=== PATIENT | female | born 1935 | race Caucasian/White ===

== ENCOUNTER 2018-04-04 14:28 | Observation (INO) ==
[2018-04-04] MEDS ORDERED: 0.9 % Sodium Chloride 1,000 ML IVC ONE (14:49)
--- NOTE | 2018-04-04 14:49 | Emergency Department Note ---
Disposition Clinical Impression: KRYSTYNA (acute kidney injury), Hypoglycemia, Generalized weakness Anemia Qualifiers: Anemia type: unspecified type Qualified Code(s): D64.9 - Anemia, unspecified Disposition: Admitted As Inpatient Condition: Fair Referrals: Ayo Talavera DO [Primary Care Provider] - Forms: ED Satisfaction Letter Time of Disposition: 16:25 Weakness HPI - General Chief complaint: ED Weakness Stated complaint: Weakness Time Seen by Provider: 04/04/18 14:36 Source: patient, family Mode of arrival: ambulatory Limitations: no limitations Nursing Notes Reviewed: Yes Vital Signs Reviewed: Yes - History of Present Illness HPI Narrative: 83-year-old female history of hypertension, hyperlipidemia, non-insulin- dependent diabetes, presents ambulatory with complaint of nausea vomiting chest pain and weakness for the last month. Patient states that her nausea and vomiting worse today, she said gradual decline in function throat the day and she states that she has no focal deficits no weakness on one side of her body, no slurred speech or facial droop. But that she just feels more tired than normal. She said intermittent bouts of chest pain that lasts for several minutes and go away, she also has cramps in her right upper abdomen. Patient states that she is had a few episodes of emesis as well. She has not been evaluated by her physician in this time period, she is no history of CVA, no history of OK is a nonsmoker nondrinker and does not take any other medications. Pt Subjective Complaint: generalized weakness/fatigue Migration: none Pain Severity: none Pain Scale: 0 Improves with: none Worsens with: exertion Associated symptoms: Reports: chest pain, nausea/vomiting. Denies: confusion, dark stools - Related Data Home Medications Medication Instructions Recorded Confirmed Aspirin [Lo-Dose Aspirin EC] 81 mg PO DAILY 04/04/18 04/04/18 Furosemide [Lasix] 20 mg PO DAILY PRN 04/04/18 04/04/18 Ketorolac Tromethamine 1 drop OP BID 04/04/18 04/04/18 Moxifloxacin OPTH Drops [Vigamox] 1 drop RIGHT EYE BID 04/04/18 04/04/18 NIFEdipine [Nifedipine ER] 30 mg PO DAILY 04/04/18 04/04/18 Omeprazole [PriLOSEC] 40 mg PO DAILY 04/04/18 04/04/18 Ramipril [Altace] 5 mg PO DAILY 04/04/18 04/04/18 Simvastatin [Zocor] 40 mg PO HS 04/04/18 04/04/18 glipiZIDE [Glipizide] 10 mg PO DAILY 04/04/18 04/04/18 hydroCHLOROthiazide 25 mg PO DAILY 04/04/18 04/04/18 [Hydrochlorothiazide] metFORMIN [Glucophage] 500 mg PO BIDWM 04/04/18 04/04/18 prednisoLONE acetate [Prednisolone 1 drop RIGHT EYE BID 04/04/18 04/04/18 Acetate] Allergies Allergy/AdvReac Type Severity Reaction Status Date / Time Hydromorphone [From Dilaudid] AdvReac Hallucinati Verified 04/04/18 14:31 ng All systems ED: reviewed and negative except as stated. Review of Systems: As Per HPI Constitutional: Reports: as per HPI, weakness. Denies: fever, chills Eyes: Denies: eye pain ENT ED: Denies: ear pain, throat pain Cardiovascular: Reports: as per HPI, chest pain Respiratory: Denies: dyspnea, wheezes Gastrointestinal: Reports: nausea, vomiting Genitourinary: Denies: urgency Musculoskeletal: Denies: back pain Integumentary: Denies: rash Neurological: Denies: headache Psychiatric: Denies: anxiety Endocrine: Reports: as per HPI, fatigue Past Medical History - Past Medical History Attestation: Yes The following information was validated with the patient. Source: patient Medical history: Reports: diabetes, hyperlipidemia, hypertension Psychiatric history: Reports: no psych history - Social History Smoking Status: Never smoker Smokeless Tobacco Status: No Alcohol use: Reports: none Drug use: Reports: none Physical Exam Constitutional: Elderly female appears somewhat lethargic but otherwise no acute distress vital signs stable borderline tachycardia 95-105 heartbeat Eyes: PERRLA, sclera anicteric conjunctival pallor, right eye post cataract surgery ENT & Mouth: MMM Neck: normal inspection, neck is supple Resp: CTA bilaterally, no resp distress CV: Tachycardia, no m/g/r GI: normal inspection, soft, no guarding or rigidity Neuro: A&O3, CNII-XII grossly intact, JOSEPH 5 out of 5 upper and lower extremities strength, no sensory deficits bilaterally. Skin: on limited exam, skin intact with no rashes or lesions Course Course Narrative: 83-year-old female with multiple comorbidities presented with generalized weakness and increased exertional dyspnea as well as chest pain, in the setting concerns for possible OK versus CHF exacerbation, she is no evidence of volume overload, she does seem somewhat pale also favor differential of anemia, UTI, bacteremia, we will get that about workup including CBC BMP troponin EKG chest x -ray CT head he will liter fluid bolus, also checking urinalysis thyroid function and CPK. Favor admission for this elderly, comorbid female - Reevaluation(s) Reevaluation #1: Patient was hypoglycemic and given half an amp of D50, blood glucose responded 102, patient with a KI, hypoglycemia, anemia with no clear baseline but 9.5 without any evidence of hematochezia or melena. The patient will be admitted for further workup to hospitalist, accepting, patient hd stable at time of admission. Time: 16:24 Vital Signs Temperature 99.2 F 04/04/18 14:31 Pulse Rate 100 04/04/18 14:31 Respiratory Rate 16 04/04/18 14:31 Blood Pressure 133/71 04/04/18 14:31 O2 Sat by Pulse Oximetry 94 04/04/18 14:31 Temperature 99.2 F 04/04/18 14:40 Pulse Rate 86 04/04/18 15:52 Respiratory Rate 14 04/04/18 15:52 Blood Pressure 131/63 04/04/18 15:52 O2 Sat by Pulse Oximetry 97 04/04/18 15:52 Oxygen Delivery Oxygen Delivery Room Air Weakness - Differential Diagnosis Differential Diagnosis: Likely: anemia, hypoglycemia, sepsis/infection, dehydration, medication effect, metabolic - Medical Records Medical records reviewed: Yes I reviewed the patient's medical records. - Lab Data Lab results reviewed: Yes I reviewed the patient's lab results. Result diagrams: 04/04/18 15:17 04/04/18 15:17 Lab Results 04/04/18 04/04/18 04/04/18 Range/Units 15:00 15:17 15:17 WBC 12.0 H (4.3-11.1) K/mcL RBC 4.37 (3.82-4.97) M/mcL Hgb 9.5 L (11.5-15.4) g/dL Hct 31.6 L (35.3-44.9) % MCV 72.3 L (83.0-100.0) fL MCH 21.7 L (28.0-33.3) pg MCHC 30.1 L (31.6-35.5) g/dL RDW 19.1 H (11.5-14.5) % Plt Count 232 (140-400) K/mcL MPV 11.2 (9.4-12.4) fL Immature Gran % 0.3 (0-4) % Seg Neutrophils % 68.9 % Lymphocytes % 16.9 % Monocytes % 10.0 % Eosinophils % 3.6 % Basophils % 0.3 % Neutrophils # 8.2 (1.6-8.9) K/mcL Lymphocytes # 2.0 (0.6-4.6) K/mcL Monocytes # 1.2 (0.0-1.3) K/mcL Eosinophils # 0.4 (0.0-0.6) K/mcL Basophils # 0.0 (0.0-0.2) K/mcL D-Dimer 483 (0-500) ng/mLFEU Sodium (136-145) mEq/L Potassium (3.5-5.1) mEq/L Chloride (98-107) mEq/L Carbon Dioxide (23-29) mEq/L BUN (8-23) mg/dL Creatinine (0.60-1.20) mg/dL Est GFR ( Amer) (> 60) Est GFR (Non-Af Amer) (> 60) BUN/Creatinine Ratio (6-26) Glucose (70-105) mg/dL Calculated Osmolality (280-300) Lactic Acid (0.5-2.2) mmol/L Calcium (8.6-10.3) mg/dL Phosphorus (2.7-4.5) mg/dL Magnesium (1.6-2.6) mg/dL Total Bilirubin (0.3-1.0) mg/dL AST (13-39) Units/L ALT (7-52) Units/L Alkaline Phosphatase (34-104) Units/L Creatine Kinase (30-223) Units/L Troponin I (< 0.04) ng/mL Serum Total Protein (6.4-8.9) g/dL Albumin (3.5-5.7) g/dL Globulin (2.4-3.5) g/dL Albumin/Globulin Ratio (1.1-2.2) Urine Color Yellow (Yellow) Urine Clarity Clear (Clear) Urine pH 5.5 (5.0-8.0) pH Units Ur Specific [place] 1.026 H (1.010-1.025) Urine Protein Negative (Neg-Trace) mg/dL Urine Glucose (UA) Normal (Normal) mg/dL Urine Ketones Negative (Negative) mg/dL Urine Blood Negative (Negative) Urine Nitrite Negative (Negative) Urine Bilirubin Negative (Negative) Urine Urobilinogen Normal (Normal) mg/dL Ur Leukocyte Esterase Small H (Negative) Urine Microscopic RBC 0-3 (0-3) per hpf Urine Microscopic WBC 5-15 H (0-3) per hpf Ur Squamous Epith Cells Many H (None-Few) per lpf Urine Bacteria Few (None-Few) per hpf Hyaline Casts None Seen (None-Few) per lpf Ur Culture Indicated? NO. A (NO) 04/04/18 04/04/18 Range/Units 15:17 15:17 WBC (4.3-11.1) K/mcL RBC (3.82-4.97) M/mcL Hgb (11.5-15.4) g/dL Hct (35.3-44.9) % MCV (83.0-100.0) fL MCH (28.0-33.3) pg MCHC (31.6-35.5) g/dL RDW (11.5-14.5) % Plt Count (140-400) K/mcL MPV (9.4-12.4) fL Immature Gran % (0-4) % Seg Neutrophils % % Lymphocytes % % Monocytes % % Eosinophils % % Basophils % % Neutrophils # (1.6-8.9) K/mcL Lymphocytes # (0.6-4.6) K/mcL Monocytes # (0.0-1.3) K/mcL Eosinophils # (0.0-0.6) K/mcL Basophils # (0.0-0.2) K/mcL D-Dimer (0-500) ng/mLFEU Sodium 139 (136-145) mEq/L Potassium 3.8 (3.5-5.1) mEq/L Chloride 102 (98-107) mEq/L Carbon Dioxide 25 (23-29) mEq/L BUN 24 H (8-23) mg/dL Creatinine 1.24 H (0.60-1.20) mg/dL Est GFR ( Amer) 50 L (> 60) Est GFR (Non-Af Amer) 41 L (> 60) BUN/Creatinine Ratio 19 (6-26) Glucose 62 L (70-105) mg/dL Calculated Osmolality 290 (280-300) Lactic Acid 2.2 (0.5-2.2) mmol/L Calcium 10.5 H (8.6-10.3) mg/dL Phosphorus 2.7 (2.7-4.5) mg/dL Magnesium 1.7 (1.6-2.6) mg/dL Total Bilirubin 0.5 (0.3-1.0) mg/dL AST 31 (13-39) Units/L ALT 23 (7-52) Units/L Alkaline Phosphatase 63 (34-104) Units/L Creatine Kinase 118 (30-223) Units/L Troponin I < 0.03 (< 0.04) ng/mL Serum Total Protein 7.2 (6.4-8.9) g/dL Albumin 4.5 (3.5-5.7) g/dL Globulin 2.7 (2.4-3.5) g/dL Albumin/Globulin Ratio 1.7 (1.1-2.2) Urine Color (Yellow) Urine Clarity (Clear) Urine pH (5.0-8.0) pH Units Ur Specific [place] (1.010-1.025) Urine Protein (Neg-Trace) mg/dL Urine Glucose (UA) (Normal) mg/dL Urine Ketones (Negative) mg/dL Urine Blood (Negative) Urine Nitrite (Negative) Urine Bilirubin (Negative) Urine Urobilinogen (Normal) mg/dL Ur Leukocyte Esterase (Negative) Urine Microscopic RBC (0-3) per hpf Urine Microscopic WBC (0-3) per hpf Ur Squamous Epith Cells (None-Few) per lpf Urine Bacteria (None-Few) per hpf Hyaline Casts (None-Few) per lpf Ur Culture Indicated? (NO) - Radiology Data Radiology results reviewed: Yes I reviewed the patient's radiology results. Chest X-Ray 04/04/18 14:49 IMPRESSION: Negative portable study. D/ / Wilda Henderson Cha, MD / Wilda Henderson Cha, MD Interpreting Provider: Wilda Henderson Cha, MD Head CT 04/04/18 14:51 IMPRESSION: No acute intracranial abnormality. Left sphenoid sinusitis. D/ / Tomer Cline MD / Tomer Cline MD Interpreting Provider: Tomer Cline MD - EKG Data EKG attestation: Yes I reviewed and interpreted this EKG. EKG shows normal: sinus rhythm Rate: normal Rhythm: NSR (99 bpm NV 157 QRS [address] segment elevations or depressions.) Attestation Statement - Attestation Attestation: Patient was seen with resident physician. I reviewed the history, physical, assessment and plan, and agree with the findings. I also personally evaluated this patient and had [id number] time with this patient. 83-year-old female presents emergency Department with chief complaint of generalized weakness. Patient states that for the last month or so should be getting progressively weaker and noticed that for the last 24-48 hours it has gotten progressively worse which ultimately prompted her visit. She said she gets up and she has very little energy to do any of her activities. Some mild shortness of breath. Denied to me chest pain. She is also had nausea and vomiting in association with this. Patient is on oral hypoglycemics in her by mouth intake has been poor for the last couple of days. Review of systems as above remainder negative. Physical exam vital signs stable. ENT pale conjunctivae otherwise unremarkable. Heart regular rhythm and rate. Lungs clear. Abdomen soft obese nontender. Extremities unremarkable. Neurologically intact without focal deficits. Skin no rashes. Psych normal. ED course with the patient's complaint of weakness and its progressive worsening. We will get a CT scan of the head and look for other causes of weakness in the elderly. Once her workup is complete we have ruled out any conditions that would require transfer or surgical intervention, she will be admitted to the hospitalist service once we have a better sense of what might be causing her symptoms. Lab testing showed some mild hypoglycemia. Head CT chest x-ray were negative. The lip testing was largely unremarkable. She was treated with some D50 and other symptomatic therapies. Obviously with her having difficulty performing daily activities she will need to be admitted for further evaluation and treatment. We did contact the hospitalist agreed to accept the patient for admission. I agree with resident physician assessment and plan.
[2018-04-04] MEDS ORDERED: *HR* Dextrose 50 % in Water (Syg) 50 ML SYRINGE IVP ONE (15:04)
[2018-04-04 15:11] LABS: Bilirubin,Urine Negative (Negative); Blood,Urine Negative (Negative); Clarity,Urine Clear (Clear); Color,Urine Yellow (Yellow); Glucose,Urine (UA) Normal (Normal); Ketones,Urine Negative (Negative); Leukocyte Esterase,Urine Small (Negative); Nitrite,Urine Negative (Negative); PH,Urine 5.5 pH Units (5.0-8.0); Protein,Urine Negative (Neg-Trace); Specific Gravity,Urine 1.026 (1.010-1.025); Urobilinogen,Urine Normal (Normal)
[2018-04-04 15:14] LABS: Bacteria,Urine Few per hpf (None-Few); Hyaline Casts,Urine None Seen per lpf (None-Few); RBC,Urine 0-3 per hpf (0-3); Squamous Epithelial Cell,Urine Many per lpf (None-Few)
[2018-04-04 15:27] LABS: Basophils % 0.3 %; Eosinophils # 0.4 K/mcL (0.0-0.6); Eosinophils % 3.6 %; Hematocrit 31.6 % (35.3-44.9); Hemoglobin 9.5 g/dL (11.5-15.4); Immature Granulocytes % 0.3 % (0-4); Lymphocytes % 16.9 %; Mean Corpuscular HGB Conc 30.1 g/dL (31.6-35.5); Mean Corpuscular Hemoglobin 21.7 pg (28.0-33.3); Mean Corpuscular Volume 72.3 fL (83.0-100.0); Mean Platelet Volume 11.2 fL (9.4-12.4); Monocytes # 1.2 K/mcL (0.0-1.3); Neutrophils # 8.2 K/mcL (1.6-8.9); Platelet Count 232 K/mcL (140-400); Red Blood Count 4.37 M/mcL (3.82-4.97); Red Cell Distribution Width 19.1 % (11.5-14.5); Segmented Neutrophils % 68.9 %
[2018-04-04 15:53] LABS: Alanine Aminotransferase 23 Units/L (7-52); Albumin 4.5 g/dL (3.5-5.7); Albumin/Globulin Ratio 1.7 (1.1-2.2); Alkaline Phosphatase 63 Units/L (34-104); Aspartate Amino Transferase 31 Units/L (13-39); BUN/Creatinine Ratio 19 (6-26); Bilirubin,Total 0.5 mg/dL (0.3-1.0); Blood Urea Nitrogen 24 mg/dL (8-23); Calcium 10.5 mg/dL (8.6-10.3); Carbon Dioxide 25 mEq/L (23-29); Chloride 102 mEq/L (98-107); Creatine Kinase 118 Units/L (30-223); Globulin 2.7 g/dL (2.4-3.5); Glucose 62 mg/dL (70-105); Magnesium 1.7 mg/dL (1.6-2.6); Osmolality,Calculated 290 (280-300); Phosphorous 2.7 mg/dL (2.7-4.5); Potassium 3.8 mEq/L (3.5-5.1); Sodium 139 mEq/L (136-145); Total Protein 7.2 g/dL (6.4-8.9); eGFR For African Americans 50 (> 60); eGFR For Non-African Americans 41 (> 60)
[2018-04-04 15:54] LABS: Troponin I < 0.03 ng/mL (< 0.04)
[2018-04-04] MEDS ORDERED: Naloxone 0.4 MG/ML INJ IVP PRN (16:43)
[2018-04-04] MEDS ORDERED: Ondansetron 4 MG/2 ML VIAL IVP PRN (16:49)
[2018-04-04] MEDS ORDERED: Furosemide 20 MG TABLET PO PRN (16:51)
[2018-04-04] MEDS ORDERED: D5% in Water 1,000 ML IVC PRN (16:52)
[2018-04-04] MEDS ORDERED: *HR* Dextrose 50 % in Water (Syg) 50 ML SYRINGE IVP PRN (16:52)
[2018-04-04] MEDS ORDERED: Dextrose Gel 15 GM/37.5 ML TUBE PO PRN ×2 (16:52)
--- NOTE | 2018-04-04 17:04 | Internal Med History&Physical ---
Addendum entered and electronically signed by Kamila Oliva 04/04/18 18:20: TSH was elevated @ 63.580, will get serum T3 and t4. Addendum entered and electronically signed by Kamila Oliva 04/04/18 17:41: A/P Generalized weakness: Ct of head negative for acute abnormality. Original Note: <Kamila Oliva - Last Filed: 04/04/18 17:39> Date of Encounter: 04/04/18 Time of Encounter: 16:56 Internal Medicine - H&P: HPI Chief complaint: Chest discomfort, nausea and vomiting Admitted From: Home Plans for Post Hospital Care: Home History of present illness: Ms. Moran is a 83 year old female with history of HTN, HLD, and DM. The patient indicated that she was not having chest pain, but " chest discomfort". She stated that the symptoms started about 1 month ago and has been reoccurring and getting worse over the past 1-2 weeks. The patient reported that she has also been having alot of nausea with a decreased appetite, however she denies CP. She also reported recent diarrhea and WONG. Patient with 2 brothers and her mother with heart history and a sister with stents. She recently had right cataract surgery and is wearing black glasses. WBC is 12.0, hgb is 9.5, unsure of her baseline. Her Na is 139, , creat is 1.24. The patient dtr is in the room also giving information. The ED gave dextrose for a blood glucose of 62. The patient dtr indicated that the blood sugar would occasionally drop when she wasn't sick. Will get cardiac workup, and trend troponins. Today's trop was < 0.03. EKG SR with a pattern consistent with pulmonary disease and an old inf IA. Chest xray showed ? minimal linear atelectasis. Will start IS. Past Med Surg Social Fam HX - Past Medical History Medical history: diabetes, hyperlipidemia, hypertension Psychiatric history: no psych history - Social History Smoking Status: Never smoker Smokeless Tobacco Status: No Alcohol use: none Drug use: none Internal Medicine - H&P: Meds Aspirin [Lo-Dose Aspirin EC] 81 mg PO DAILY 04/04/18 [History] Furosemide [Lasix] 20 mg PO DAILY PRN 04/04/18 [History] Ketorolac Tromethamine 1 drop OP BID 04/04/18 [History] Moxifloxacin OPTH Drops [Vigamox] 1 drop RIGHT EYE BID 04/04/18 [History] NIFEdipine [Nifedipine ER] 30 mg PO DAILY 04/04/18 [History] Omeprazole [PriLOSEC] 40 mg PO DAILY 04/04/18 [History] Ramipril [Altace] 5 mg PO DAILY 04/04/18 [History] Simvastatin [Zocor] 40 mg PO HS 04/04/18 [History] glipiZIDE [Glipizide] 10 mg PO DAILY 04/04/18 [History] hydroCHLOROthiazide [Hydrochlorothiazide] 25 mg PO DAILY 04/04/18 [History] metFORMIN [Glucophage] 500 mg PO BIDWM 04/04/18 [History] prednisoLONE acetate [Prednisolone Acetate] 1 drop RIGHT EYE BID 04/04/18 [ History] 3 Allergy/AdvReac Type Severity Reaction Status Date / Time Hydromorphone [From Dilaudid] AdvReac Hallucinati Verified 04/04/18 14:31 ng All Systems PM: A 10-system review of systems was performed and is negative for pertinent findings except as documented above in the HPI. - Constitutional Constitutional: fatigue, weakness, no chills, no fever(s), no night sweats - EENT Eyes: other visual disturbances (Recent cataract surgery of right eye.), no change in vision, no discharge, no pain, no photophobia Ears: no ear discharge, no ear pain, no tinnitus Nose, mouth and throat: no dysphagia, no nasal discharge, no neck pain, no sore throat - Cardiovascular Cardiovascular ROS IM: chest pain (States "chest discomfort"), no diaphoresis, no dyspnea, no lightheadedness, no palpitations, no syncope - Respiratory Respiratory: no cough, no dyspnea, no wheezing, no excessive phlegm production - Gastrointestinal Gastrointestinal: diarrhea, nausea, no abdominal pain, no hematemesis, no hematochezia, no melena - Genitourinary Genitourinary: no change in urinary stream, no dysuria, no flank pain, no hematuria - Musculoskeletal Musculoskeletal ROS IM: no numbness, no tingling - Integumentary Integumentary IM: no rash, no unusual bruising - Neurological Neurological ROS: headache(s), no confusion, no convulsions, no focal weakness, no numbness, no tingling, no tremor(s) - Hematologic/Lymphatic Hematologic/Lymphatic: no easy bruising - Constitutional Vitals: Temp Pulse Resp BP Pulse Ox 99.2 F 86 11 115/66 97 04/04/18 14:40 04/04/18 15:52 04/04/18 16:51 04/04/18 16:51 04/04/18 15:52 General appearance: Present: A&O X 3 - Head Head exam: Present: atraumatic, normal inspection, normocephalic - Eye Eye exam: Present: PERRL, conjuntiva pink, sclera anicteric Pupils: Present: PERRL - Neck Neck exam general surgery: Present: supple, trachea midline. Absent: lymphadenopathy - Respiratory Respiratory exam: Present: CTAB. Absent: accessory muscle use, rales, rhonchi, wheezes - Cardiovascular Cardiovascular exam: Present: RRR, +S1, +S2. Absent: diastolic murmur, gallop, rubs, systolic murmur - GI/Abdominal GI/Abdominal exam: Present: normal bowel sounds, soft, no peritoneal signs. Absent: distended, tenderness - Extremities Exam Extremities exam: Present: warm, radial pulses palpable and symmetrical. Absent : calf tenderness, cyanotic, pedal edema - Neurological Exam Neurological exam: Present: CN II-XII intact, oriented X3, no focal deficits. Absent: pronater drift, facial droop, speech deficit - Skin Skin exam: Present: dry, intact Internal Med - H&P Results - Labs CBC & Chem 7: 04/04/18 15:17 04/04/18 15:17 - Assessment and plan (1) Chest discomfort Current Visit: Yes Status: Acute Assessment and plan: Patient indicated that she was having "chest discomfort" off and on for the past 1 month, unsure of etiology, with associated nausea. Cardiac monitoring Trend cardiac enzymes Oxygen prn Monitor daily labs (2) KRYSTYNA (acute kidney injury) Current Visit: Yes Status: Acute Assessment and plan: Likely related to dehydration, IV fluids Monitor daily labs-cbc and BMP (3) Anemia Current Visit: Yes Status: Acute Assessment and plan: Cause of anemia is unclear, could be related to kidney function Monitor cbc daily Cardiac monitoring Oxygen prn Qualifiers: Anemia type: unspecified type Qualified Code(s): D64.9 - Anemia, unspecified (4) Generalized weakness Current Visit: Yes Status: Acute Assessment and plan: Likely related to dehydration and anemia Monitor labs daily Up with assist only PT/OT consult (5) Hypoglycemia Current Visit: Yes Status: Acute Assessment and plan: Accu checks ac/hs with humalog low sliding scale Hold metformin and glipizide - Time Spent With Patient Total time spent is greater than 50% in coordination of care (as documented) at patient's floor/unit and/or counseling patient: less than 15 minutes <Renato Sheehan P - Last Filed: 04/04/18 19:03> Date of Encounter: 04/04/18 Internal Medicine - H&P: HPI History of present illness: Ms. Moran is a 83 year old female All Systems PM: A 10-system review of systems was performed and is negative for pertinent findings except as documented above in the HPI. - Constitutional Vitals: Temp Pulse Resp BP Pulse Ox 98.4 F 81 18 123/68 94 04/04/18 17:44 04/04/18 17:44 04/04/18 17:44 04/04/18 17:44 04/04/18 17:44 Internal Med - H&P Results - Labs CBC & Chem 7: 04/04/18 15:17 04/04/18 15:17 - Attending Attestation I have seen and evaluated patient. I have performed my own physical examination. I have discussed case with admitting RESEARCHER. I agree with RESEARCHER's assessment and plan as documented in her H&P. Briefly, patient admitted for 1- month history of intermittent chest pain, KRYSTYNA, anemia, nausea, and generalized weakness. We will do ACS rule out with telemetry, serial troponins, and ECHO. We will hydrate gently with IV NS at 75 ml/hr for KRYSTYNA. We will use zofran PRN for nausea. We will monitor serial CBC and check iron panel for anemia. We will consult PT/OT for weakness. She had borderline hypoglycemia in ED that improved with dextrose. We will hold home glipizide and start accuchecks and low dose SSI QID AC/HS. We will monitor closely in observation overnight. - Time Spent With Patient Total time spent is greater than 50% in coordination of care (as documented) at patient's floor/unit and/or counseling patient:
[2018-04-04 17:59] LABS: % Iron Saturation 3 % (15-50); Iron 16 mcg/dL (50-170); Transferrin 442 mg/dL (203-362)
[2018-04-04] MEDS: 0.9 % Sodium Chloride 1,000 ML IVC SCH (18:22)
[2018-04-04 19:02] LABS: Triiodothyronine (T3) Total 0.94 ng/mL (0.87-1.78)
[2018-04-04 19:47] LABS: Triiodothyronine (T3) Total 0.65 ng/mL (0.87-1.78)
[2018-04-04] MEDS: Ketorolac OPTH Soln 5 ML BOTTLE RIGHT EYE SCH (20:58)
[2018-04-04] MEDS: PrednisoLONE Acetate 1% Opth 5 ML BOTTLE RIGHT EYE SCH (20:58)
[2018-04-04] MEDS: Moxifloxacin OPTH Drops 3 ML BOTTLE RIGHT EYE SCH (20:58)
[2018-04-04] MEDS: Insulin LISPRO 300 UNITS/3 ML VIAL SQ SCH (20:59)
[2018-04-05 03:45] LABS: Basophils % 0.4 %; Eosinophils # 0.4 K/mcL (0.0-0.6); Eosinophils % 4.4 %; Hematocrit 28.9 % (35.3-44.9); Hemoglobin 8.5 g/dL (11.5-15.4); Immature Granulocytes % 0.2 % (0-4); Lymphocytes % 21.7 %; Mean Corpuscular HGB Conc 29.4 g/dL (31.6-35.5); Mean Corpuscular Hemoglobin 21.4 pg (28.0-33.3); Mean Corpuscular Volume 72.6 fL (83.0-100.0); Monocytes % 10.4 %; Neutrophils # 5.9 K/mcL (1.6-8.9); Platelet Count 200 K/mcL (140-400); Red Blood Count 3.98 M/mcL (3.82-4.97); Red Cell Distribution Width 19.2 % (11.5-14.5); Segmented Neutrophils % 62.9 %
[2018-04-05 04:07] LABS: Calcium 9.8 mg/dL (8.6-10.3); Chol/HDL Ratio 3.5 (0-4.9); Potassium 3.9 mEq/L (3.5-5.1)
[2018-04-05] MEDS: Insulin LISPRO 300 UNITS/3 ML VIAL SQ SCH ×4 (07:52→21:36)
[2018-04-05] MEDS ORDERED: *HR* GlipiZIDE 5 MG TABLET PO SCH (09:00)
--- NOTE | 2018-04-05 09:07 | Internal Med Progress Note ---
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 [facility] approximately one year ago She has received no treatment since those findings Reports with greater than one-month history of weakness, fatigue, chest discomfort, nausea TSH obtained with results of 63.580, 3 T4 2 0.80, total T3 0.65 Started patient on conservative Synthroid dosing, 125 mcg daily first dose today Obtain thyroid US Antimicrosomal antibody pending Remains hemodynamically stable A and O 3 and appropriate Qualifiers: Hypothyroidism type: unspecified Qualified Code(s): E03.9 - Hypothyroidism , unspecified (2) KRYSTYNA (acute kidney injury) Current Visit: Yes Status: Acute Assessment and plan: Acute kidney injury on admission. Renal function improving, serum creatinine 1.14, GFR 45, BUN 18 today 04/05/18 Avoid nephrotoxins Continue to monitor renal function Encourage oral fluid intake (3) Anemia Current Visit: Yes Status: Acute Assessment and plan: History of chronic anemia, appears to be EVELIO with iron of 16, transferrin 442 Presents with weakness, fatigue, and also has pallor on exam No obvious bleeding noted Denies any denies any hematuria, hematemesis, hematochezia, melena Replace oral iron now and then daily Recheck H&H this afternoon then labs daily Type and screen, continue to monitor transfuse if necessary Qualifiers: Anemia type: unspecified type Qualified Code(s): D64.9 - Anemia, unspecified (4) Chest discomfort Current Visit: Yes Status: Acute Assessment and plan: Resolved Continue desk monitor Cardiac enzymes negative 3 (5) Diabetes mellitus Current Visit: Yes Status: Acute Assessment and plan: History of DM Initially hypoglycemic on arrival Blood glucose has improved since admission, FSBG this afternoon 201 Low sliding scale insulin coverage Qualifiers: Qualified Code(s): E11.9 - Type 2 diabetes mellitus without complications (6) Generalized weakness Current Visit: Yes Status: Acute Assessment and plan: Secondary to anemia and hypothyroidism See above (7) Hypoglycemia Current Visit: Yes Status: Acute Assessment and plan: Resolved. - Time Spent With Patient Total time spent is greater than 50% in coordination of care (as documented) at patient's floor/unit and/or counseling patient: 25 - 35 minutes - Subjective Interval history: Patient seen and examined at bedside today. No acute changes overnight. Continued to report fatigue in BLE weakness - Constitutional Vitals: Temp Pulse Resp BP Pulse Ox 97.9 F 80 16 137/68 94 04/05/18 07:35 04/05/18 07:35 04/05/18 07:35 04/05/18 07:35 04/05/18 07:35 General appearance: Present: A&O X 3, no acute distress - Head Head exam: Present: atraumatic, normocephalic - Eye Eye exam: Present: PERRL, conjuntiva pink, sclera anicteric Pupils: Present: PERRL - Neck Neck exam general surgery: Present: normal inspection, supple, trachea midline. Absent: lymphadenopathy, tenderness, thyromegaly - Expanded Neck Exam Neck exam: Absent: thyroid mass - Respiratory Respiratory exam: Present: decreased breath sounds, CTAB. Absent: accessory muscle use, rales, rhonchi, wheezes - Cardiovascular Cardiovascular exam: Present: RRR, +S1, +S2. Absent: diastolic murmur, gallop, rubs, systolic murmur - GI/Abdominal GI/Abdominal exam: Present: normal bowel sounds, soft, no peritoneal signs. Absent: distended, tenderness - Extremities Exam Extremities exam: Present: normal capillary refill, normal inspection, warm, radial pulses palpable and symmetrical. Absent: calf tenderness, cyanotic, pedal edema - Neurological Exam Neurological exam: Present: alert, CN II-XII intact, normal gait, oriented X3, reflexes normal, no focal deficits, strengths equal and symetr throughout. Absent: pronater drift, facial droop, speech deficit - Skin Skin exam: Present: dry, intact Internal Medicine: Result - Labs CBC & Chem 7: 04/05/18 03:31 04/05/18 03:31 Labs: Short CBC 04/05/18 Range/Units 03:31 WBC 9.4 (4.3-11.1) K/mcL Hgb 8.5 L (11.5-15.4) g/dL Hct 28.9 L (35.3-44.9) % Plt Count 200 (140-400) K/mcL Neutrophils # 5.9 (1.6-8.9) K/mcL BMP 04/05/18 03:31 Sodium 141 Potassium 3.9 Chloride 107 Carbon Dioxide 27 BUN 18 Creatinine 1.14 Glucose 108 H Calcium 9.8 Cardiac Enzymes 04/04/18 04/05/18 Range/Units 21:29 03:31 Troponin I < 0.03 < 0.03 (< 0.04) ng/mL - ABG Interpretation ABG results: PT/INR, D-dimer D-Dimer 483 ng/mLFEU (0-500) 04/04/18 15:17 Consult Discharge Plan - Plan Referrals: Ayo Talavera DO [Primary Care Provider] -
[2018-04-05] MEDS: 0.9 % Sodium Chloride 1,000 ML IVC SCH (09:13)
[2018-04-05] MEDS: Lisinopril 20 MG TABLET PO SCH (09:13)
[2018-04-05] MEDS: hydroCHLOROthiazide 25 MG TABLET PO SCH (09:14)
[2018-04-05] MEDS: Aspirin Enteric Coated 81 MG Tablet PO SCH (09:14)
[2018-04-05] MEDS: NIFEdipine XL (24 HR) 30 MG TAB.ER.24 PO SCH (09:17)
[2018-04-05] MEDS: Moxifloxacin OPTH Drops 3 ML BOTTLE RIGHT EYE SCH ×2 (09:17→23:11)
[2018-04-05] MEDS: Ketorolac OPTH Soln 5 ML BOTTLE RIGHT EYE SCH ×2 (09:20→23:11)
[2018-04-05] MEDS: PrednisoLONE Acetate 1% Opth 5 ML BOTTLE RIGHT EYE SCH ×2 (09:22→23:11)
[2018-04-05 09:23] LABS: Estimated Average Glucose 169 mg/dl; Hemoglobin A1C 7.5 %
--- NOTE | 2018-04-05 10:13 | Electrocardiograph Report ---
[address] [place] [address] Test Date: 2018-04-04 Pat Name: Erendira Moran Department: 103 Room: 3B Gender: F [employer] Equipment Sales Engineer: SHILPA : 1935 Requested By: Angel Tao Order Number: [id number] Reading MD: Michael Gilbert Measurements Intervals [place] Rate: 99 P: 40 SC: 157 QRS: -52 QRSD: 86 T: 47 QT: 331 QTc: 388 Interpretive Statements SINUS RHYTHM Poor R wave progression INFERIOR MYOCARDIAL INFARCTION, PROBABLY OLD Electronically Signed On 04-05-2018 10:11:35 EDT by Michael Gilbert
[2018-04-05 16:58] LABS: Hematocrit 30.5 % (35.3-44.9); Hemoglobin 8.9 g/dL (11.5-15.4)
[2018-04-06 05:24] LABS: Basophils % 0.5 %; Eosinophils # 0.3 K/mcL (0.0-0.6); Eosinophils % 4.8 %; Hematocrit 26.4 % (35.3-44.9); Hemoglobin 7.7 g/dL (11.5-15.4); Immature Granulocytes % 0.6 % (0-4); Lymphocytes # 1.7 K/mcL (0.6-4.6); Lymphocytes % 25.4 %; Mean Corpuscular HGB Conc 29.2 g/dL (31.6-35.5); Mean Corpuscular Hemoglobin 21.4 pg (28.0-33.3); Mean Corpuscular Volume 73.5 fL (83.0-100.0); Mean Platelet Volume 11.1 fL (9.4-12.4); Monocytes # 0.8 K/mcL (0.0-1.3); Monocytes % 11.6 %; Neutrophils # 3.8 K/mcL (1.6-8.9); Platelet Count 168 K/mcL (140-400); Red Blood Count 3.59 M/mcL (3.82-4.97); Red Cell Distribution Width 19.1 % (11.5-14.5); Segmented Neutrophils % 57.1 %
[2018-04-06 05:42] LABS: BUN/Creatinine Ratio 15 (6-26); Blood Urea Nitrogen 15 mg/dL (8-23); Calcium 9.4 mg/dL (8.6-10.3); Carbon Dioxide 26 mEq/L (23-29); Chloride 109 mEq/L (98-107); Glucose 139 mg/dL (70-105); Osmolality,Calculated 293 (280-300); Potassium 3.8 mEq/L (3.5-5.1); Sodium 140 mEq/L (136-145); eGFR For African Americans > 60 (> 60); eGFR For Non-African Americans 51 (> 60)
[2018-04-06] MEDS: 0.9 % Sodium Chloride 1,000 ML IVC SCH (07:20)
[2018-04-06] MEDS: Insulin LISPRO 300 UNITS/3 ML VIAL SQ SCH ×4 (08:18→21:22)
[2018-04-06] MEDS: Lisinopril 20 MG TABLET PO SCH (08:18)
[2018-04-06] MEDS: NIFEdipine XL (24 HR) 30 MG TAB.ER.24 PO SCH (08:18)
[2018-04-06] MEDS: Aspirin Enteric Coated 81 MG Tablet PO SCH (08:18)
[2018-04-06] MEDS: Moxifloxacin OPTH Drops 3 ML BOTTLE RIGHT EYE SCH ×2 (08:19→21:19)
[2018-04-06] MEDS: hydroCHLOROthiazide 25 MG TABLET PO SCH (08:19)
[2018-04-06] MEDS: Ketorolac OPTH Soln 5 ML BOTTLE RIGHT EYE SCH ×2 (08:21→21:18)
[2018-04-06] MEDS: PrednisoLONE Acetate 1% Opth 5 ML BOTTLE RIGHT EYE SCH ×2 (08:23→21:19)
--- NOTE | 2018-04-06 11:11 | Internal Med Progress Note ---
Date of Encounter: 04/06/18 Time of Encounter: 11:11 - Assessment and plan (1) Anemia Current Visit: Yes Status: Acute Assessment and plan: Hemoglobin 7.7 this a.m. does not appear to be actively bleeding at this time does have history of chronic anemia appears to be EVELIO with iron of 16 transferrin 442 we will check a ferritin level as well as B12 and folate. Denies any hematuria hematemesis hematochezia melena Continue with oral iron We will recheck H&H this afternoon if less than 7 we will transfuse Qualifiers: Anemia type: unspecified type Qualified Code(s): D64.9 - Anemia, unspecified (2) KRYSTYNA (acute kidney injury) Current Visit: Yes Status: Acute Assessment and plan: Acute kidney injury on admission. Renal function improving, serum creatinine 1.03 04/06/2018 Avoid nephrotoxins Continue to monitor renal function Encourage oral fluid intake (3) Hypoglycemia Current Visit: Yes Status: Acute Assessment and plan: Resolved. (4) Generalized weakness Current Visit: Yes Status: Acute Assessment and plan: Secondary to anemia and hypothyroidism See above (5) Chest discomfort Current Visit: Yes Status: Acute Assessment and plan: Resolved Continue director non profit Cardiac enzymes negative 3 (6) Diabetes mellitus Current Visit: Yes Status: Acute Assessment and plan: Initially hypoglycemic on arrival Glucose has been stable continue with Accu-Cheks before meals at bedtime with fine scale insulin Qualifiers: Diabetes mellitus type: type 2 Diabetes mellitus custodial insulin use: without custodial use Diabetes mellitus complication status: without complication Qualified Code(s): E11.9 - Type 2 diabetes mellitus without complications (7) Hypothyroidism Current Visit: Yes Status: Acute Assessment and plan: Hypothyroidism-Patient 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 [facility] approximately one year ago She has received no treatment since those findings Recent and with greater than one-month history of weakness, fatigue, chest discomfort, nausea TSH obtained with results of 63.580, 3 T4 2 0.80, total T3 0.65 Started patient on conservative Synthroid dosing, 125 mcg daily first dose today Obtain thyroid US-pending results Antimicrosomal antibody pending Remains hemodynamically stable We will recheck TSH Qualifiers: Hypothyroidism type: unspecified Qualified Code(s): E03.9 - Hypothyroidism , unspecified (8) DVT prophylaxis Current Visit: Yes Status: Acute Assessment and plan: SCDs due to anemia - Time Spent With Patient Total time spent is greater than 50% in coordination of care (as documented) at patient's floor/unit and/or counseling patient: - Subjective Interval history: Patient was seen and examined at the bedside. Patient denies any chest pain or shortness of breath at this time. Hemoglobin was low this a.m. we will recheck this afternoon and transfuse as needed. We will obtain stool for occult. I did discuss treatment plan with the patient who verbalized understanding. - Constitutional Vitals: Temp Pulse Resp BP Pulse Ox 97.8 F 68 16 113/65 95 04/06/18 07:48 04/06/18 07:48 04/06/18 07:48 04/06/18 07:48 04/06/18 08:20 General appearance: Present: A&O X 3, no acute distress - Head Head exam: Present: atraumatic, normocephalic - Eye Eye exam: Present: PERRL, conjuntiva pink, sclera anicteric Pupils: Present: PERRL - Neck Neck exam general surgery: Present: supple, trachea midline. Absent: lymphadenopathy - Respiratory Respiratory exam: Present: CTAB. Absent: accessory muscle use, rales, rhonchi, wheezes - Cardiovascular Cardiovascular exam: Present: RRR, +S1, +S2. Absent: diastolic murmur, gallop, rubs, systolic murmur - GI/Abdominal GI/Abdominal exam: Present: normal bowel sounds, soft, no peritoneal signs. Absent: distended, tenderness - Extremities Exam Extremities exam: Present: warm, radial pulses palpable and symmetrical. Absent : calf tenderness, cyanotic, pedal edema - Neurological Exam Neurological exam: Present: CN II-XII intact, oriented X3, no focal deficits. Absent: pronater drift, facial droop, speech deficit - Skin Skin exam: Present: dry, intact Internal Medicine: Result - Labs CBC & Chem 7: 04/06/18 13:58 04/06/18 05:00 Labs: Short CBC 04/05/18 04/06/18 Range/Units 14:13 05:00 WBC 6.7 (4.3-11.1) K/mcL Hgb 8.9 L 7.7 L (11.5-15.4) g/dL Hct 30.5 L 26.4 L (35.3-44.9) % Plt Count 168 (140-400) K/mcL Neutrophils # 3.8 (1.6-8.9) K/mcL BMP 04/06/18 05:00 Sodium 140 Potassium 3.8 Chloride 109 H Carbon Dioxide 26 BUN 15 Creatinine 1.03 Glucose 139 H Calcium 9.4 - ABG Interpretation ABG results: PT/INR, D-dimer D-Dimer 483 ng/mLFEU (0-500) 04/04/18 15:17 - Impressions Impressions Echocardiogram 04/05/18 08:00 Impressions: LVEF 60-65%. Normal LV chamber size and function. Mild concentric left ventricular hypertrophy. Mild left ventricular diastolic dysfunction. Normal right ventricular structure and function. No evidence of pulmonary hypertension. No significant valvular dysfunction. Left Ventricular Wall Motion: Rest Echo Findings All wall segments showed normal motion. Findings: Study Quality * Technically adequate exam. ECG Findings * Sinus rhythm with BBB. Left Ventricle * LVEF 60-65%. * Normal LV chamber size and function. * Mild concentric left ventricular hypertrophy. * Mild left ventricular diastolic dysfunction. * Atypical septal motion consistent with bundle branch block. Right Ventricle * Normal right ventricular structure and function. Left Atrium * Mildly dilated left atrium. Right Atrium * Normal right atrial size. Aortic Valve * Trileaflet aortic valve. * Mildly sclerotic aortic valve leaflets. * Trace aortic regurgitation. * No aortic stenosis. Mitral Valve * Normal mitral valve structure and function. * No mitral regurgitation. * No mitral stenosis. Tricuspid Valve * Normal tricuspid valve structure and function. * Trace tricuspid regurgitation. * No evidence of pulmonary hypertension. Pulmonic Valve * Normal pulmonic valve structure and function. * No pulmonic regurgitation. Aorta * Normally sized aortic root. Pericardium * The pericardium appears normal. IVC * Normal IVC dimensions and inspiratory collapse. Pulmonary Artery * Normal visualized portions of the main pulmonary artery. Thyroid Ultrasound 04/05/18 15:29 IMPRESSION: Enlarged multinodular goiter with a dominant nodule noted on the right. Correlation with nuclear medicine may be helpful. D/ / Dionicio Bennett MD / Dionicio Bennett MD Interpreting Provider: Dionicio Bennett MD - VTE Documentation of Mechanical Device: Venous foot pump, device Consult Discharge Plan - Plan Referrals: Ayo Talavera DO [Primary Care Provider] - 04/14/18 11:15 am
[2018-04-06 12:21] LABS: Folate 19.7 ng/mL (3.0-16.0)
[2018-04-06 14:23] LABS: Hemoglobin 8.2 g/dL (11.5-15.4)
[2018-04-07 05:04] LABS: Basophils % 0.4 %; Eosinophils # 0.5 K/mcL (0.0-0.6); Hematocrit 27.9 % (35.3-44.9); Hemoglobin 8.2 g/dL (11.5-15.4); Immature Granulocytes % 0.4 % (0-4); Immature Platelets 6.7 % (1.1-6.1); Lymphocytes % 28.9 %; Mean Corpuscular HGB Conc 29.4 g/dL (31.6-35.5); Mean Corpuscular Hemoglobin 21.8 pg (28.0-33.3); Mean Corpuscular Volume 74.2 fL (83.0-100.0); Mean Platelet Volume 11.3 fL (9.4-12.4); Monocytes # 0.7 K/mcL (0.0-1.3); Monocytes % 9.4 %; Neutrophils # 3.7 K/mcL (1.6-8.9); Platelet Count 148 K/mcL (140-400); Red Blood Count 3.76 M/mcL (3.82-4.97); Red Cell Distribution Width 19.2 % (11.5-14.5); Segmented Neutrophils % 53.9 %
[2018-04-07 05:18] LABS: BUN/Creatinine Ratio 16 (6-26); Blood Urea Nitrogen 16 mg/dL (8-23); Calcium 9.9 mg/dL (8.6-10.3); Carbon Dioxide 27 mEq/L (23-29); Chloride 107 mEq/L (98-107); Glucose 158 mg/dL (70-105); Osmolality,Calculated 298 (280-300); Sodium 142 mEq/L (136-145); eGFR For African Americans > 60 (> 60); eGFR For Non-African Americans 51 (> 60)
[2018-04-07 05:53] LABS: Platelet Estimate Normal (Normal)
[2018-04-07 05:54] LABS: Anisocytosis 1+ (Not Present); Reactive Lymphocytes Present (Not Present)
[2018-04-07] MEDS: Lisinopril 20 MG TABLET PO SCH (08:31)
[2018-04-07] MEDS: Aspirin Enteric Coated 81 MG Tablet PO SCH (08:31)
[2018-04-07] MEDS: hydroCHLOROthiazide 25 MG TABLET PO SCH (08:31)
[2018-04-07] MEDS: NIFEdipine XL (24 HR) 30 MG TAB.ER.24 PO SCH (08:31)
[2018-04-07] MEDS: Moxifloxacin OPTH Drops 3 ML BOTTLE RIGHT EYE SCH (08:33)
[2018-04-07] MEDS: PrednisoLONE Acetate 1% Opth 5 ML BOTTLE RIGHT EYE SCH (08:33)
[2018-04-07] MEDS: Ketorolac OPTH Soln 5 ML BOTTLE RIGHT EYE SCH (08:33)
[2018-04-07] MEDS: Insulin LISPRO 300 UNITS/3 ML VIAL SQ SCH ×2 (08:34→12:06)
[2018-04-07] MEDS ORDERED: Cyanocobalamin (B-12) 1,000 MCG/ML VIAL SQ ONE (10:56)
--- NOTE | 2018-04-07 10:59 | Discharge Summary ---
- NOTES TO OUTPATIENT PROVIDER Notes to Outpatient Provider: Enlarged multinodular goiter with a dominant nodule noted on the right.-Recommend biopsy as outpatient. Initiated on Synthroid-monitor TSH. Anemia hemoglobin 8.2-started on iron as well as B12- monitor CBC and B12 Orders not resulted at time of discharge: Pending orders 04/05/18 07:54 Occult Blood,Stool [BF] Routine 04/05/18 16:00 Anti-Microsomal Antibody,(TPO) Routine 04/08/18 04:00 Basic Metabolic Panel AM 0400 Complete Blood Count [HEME] AM 0400 Date of Encounter: 04/07/18 Time of Encounter: 10:58 - Discharge Diagnosis (1) Anemia Priority: Secondary Status: Acute Qualifiers: Anemia type: unspecified type Qualified Code(s): D64.9 - Anemia, unspecified (2) KRYSTYNA (acute kidney injury) Priority: Primary Status: Acute (3) Hypoglycemia Priority: Secondary Status: Acute (4) Generalized weakness Priority: Secondary Status: Acute (5) Chest discomfort Priority: Secondary Status: Acute (6) Diabetes mellitus Priority: Secondary Status: Acute Qualifiers: Diabetes mellitus type: type 2 Diabetes mellitus senior care insulin use: without salvage determiner use Diabetes mellitus complication status: without complication Qualified Code(s): E11.9 - Type 2 diabetes mellitus without complications (7) Hypothyroidism Priority: Secondary Status: Acute Qualifiers: Hypothyroidism type: unspecified Qualified Code(s): E03.9 - Hypothyroidism , unspecified Hospital course: Ms. Moran is a 83 year old female past medical history of hypertension hyperlipidemia diabetes. Patient has been experiencing for approximately one month chest discomfort as well as nausea and decreased appetite fatigue she presented to the ER with these complaints. She had recently undergone a cataract surgery her blood glucose was low on presentation a 61-year-old right Was 12 her hemoglobin was 9.5 she did have KRYSTYNA TSH was elevated at 63.5 T 42.80 T3 0.65. She denies any hematemesis hemoptysis or hematochezia or melena. Her parents were negative 3 no EKG changes she was given IV fluids and AK I resolved to return back to baseline. Hemoglobin was trended and remained around 9-8 which I suspect is her baseline iron panel completed appears to be EVELIO as well as low B12. She was started on ferrous sulfate as well as B12 injections. Patient overall did improve she was seen by PT OT with no recommendations. Ultrasound of thyroid was completed which did reveal enlarged multi-nodular goiter with dominant nodule noted on the right. Patient states that she had been told previously that she had findings of thyroid adenoma at [place]'s daughter however she received a treatment. Patient was initiated on Synthroid 25 g. Patient will follow-up with primary care she will have lab work drawn in a few days to monitor H&H. Patient will undergo thyroid biopsy as outpatient. Patient given prescription for ferrous sulfate Synthroid as well as B12 injections for the next 3 days. Patient states diet will be able to give her her injections. Patient verbalized understanding of discharge instructions as well as medications she is hemodynamically stable at this time and is ready for discharge. - Time Spent with Patient Total time spent providing and/or coordinating discharge services: - Discharge Medications Prescriptions: Cyanocobalamin (B-12) [Vitamin B12] 1,000 mcg SQ DAILY #3 mls Ferrous Sulfate 325 mg PO DAILY@0800 #30 tablet Levothyroxine [Synthroid] 125 mcg PO DAILY@0630 #30 tablet Supplies [SUPPLIES] 1 each SQ DAILY #6 each Home Medications: Aspirin [Lo-Dose Aspirin EC] 81 mg PO DAILY 04/04/18 [History] Furosemide [Lasix] 20 mg PO DAILY PRN 04/04/18 [History] Ketorolac Tromethamine 1 drop OP BID 04/04/18 [History] Moxifloxacin OPTH Drops [Vigamox] 1 drop RIGHT EYE BID 04/04/18 [History] NIFEdipine [Nifedipine ER] 30 mg PO DAILY 04/04/18 [History] Omeprazole [PriLOSEC] 40 mg PO DAILY 04/04/18 [History] Ramipril [Altace] 5 mg PO DAILY 04/04/18 [History] Simvastatin [Zocor] 40 mg PO HS 04/04/18 [History] glipiZIDE [Glipizide] 10 mg PO DAILY 04/04/18 [History] hydroCHLOROthiazide [Hydrochlorothiazide] 25 mg PO DAILY 04/04/18 [History] metFORMIN [Glucophage] 500 mg PO BIDWM 04/04/18 [History] prednisoLONE acetate [Prednisolone Acetate] 1 drop RIGHT EYE BID 04/04/18 [ History] Cyanocobalamin (B-12) [Vitamin B12] 1,000 mcg SQ DAILY #3 mls 04/07/18 [Rx] Ferrous Sulfate 325 mg PO DAILY@0800 #30 tablet 04/07/18 [Rx] Levothyroxine [Synthroid] 125 mcg PO DAILY@0630 #30 tablet 04/07/18 [Rx] Supplies [SUPPLIES] 1 each SQ DAILY #6 each 04/07/18 [Rx] Allergies/Adverse Reactions: 3 Allergy/AdvReac Type Severity Reaction Status Date / Time Hydromorphone [From Dilaudid] AdvReac Hallucinati Verified 04/04/18 14:31 ng Date of admission: 04/04/18 16:33 Primary care physician: Ayo Talavera, Discharging clinician: Malika Dixon Anticipated date of discharge: 04/07/18 - Constitutional Vitals: Temp Pulse Resp BP Pulse Ox 98.1 F 80 16 133/67 93 04/07/18 07:25 04/07/18 07:25 04/07/18 07:25 04/07/18 07:25 04/07/18 07:25 General appearance: Present: A&O X 3, no acute distress - Head Head exam: Present: atraumatic, normocephalic - Eye Eye exam: Present: PERRL, conjuntiva pink, sclera anicteric Pupils: Present: PERRL - Neck Neck exam general surgery: Present: supple, trachea midline. Absent: lymphadenopathy - Respiratory Respiratory exam: Present: CTAB. Absent: accessory muscle use, rales, rhonchi, wheezes - Cardiovascular Cardiovascular exam: Present: RRR, +S1, +S2. Absent: diastolic murmur, gallop, rubs, systolic murmur - GI/Abdominal GI/Abdominal exam: Present: normal bowel sounds, soft, no peritoneal signs. Absent: distended, tenderness - Extremities Exam Extremities exam: Present: warm, radial pulses palpable and symmetrical. Absent : calf tenderness, cyanotic, pedal edema - Neurological Exam Neurological exam: Present: CN II-XII intact, oriented X3, no focal deficits. Absent: pronater drift, facial droop, speech deficit - Skin Skin exam: Present: dry, intact - Patient Status Disposition: Home, Self-Care Condition: Fair Functional capacity at discharge: independent ambulation Overall status at discharge: patient is back to baseline - Ambulatory Orders Ambulatory Orders: Complete Blood Count [HEME] Time Frame: 04/09/18, Facility: [facility], Location: Lab - Discharge Instructions Instructions: Iron Supplements (By mouth), Levothyroxine (By mouth), Hypothyroidism (DC), Anemia (GEN), Vitamin B12 Deficiency (GEN) Follow Up With: Ayo Talavera DO [Primary Care Provider] - 04/14/18 11:15 am - Diet and Activity Activity: resume usual activities as tolerated Diet: diabetic diet - VTE Documentation of Mechanical Device: Venous foot pump, device
[2018-04-07 11:21] VITALS: BP 130/55
== END 2018-04-07 15:15 | disposition home or self-care (01) ==
LOC: 3BNU 14:28 → EMEROO 14:28 → 3BNU 17:31
PROVIDERS: ADMIT Family Medicine; ATTEND Family Medicine

== ENCOUNTER 2020-09-16 15:13 | Observation (INO) ==
[2020-09-16 16:14] LABS: Basophils # 0.1 K/mcL (0.0-0.2); Basophils % 0.7 %; Eosinophils # 0.1 K/mcL (0.0-0.6); Eosinophils % 0.5 %; Hematocrit 42.8 % (35.3-44.9); Hemoglobin 13.7 g/dL (11.5-15.4); Immature Granulocytes % 3.4 % (0-4); Lymphocytes % 10.2 %; Mean Corpuscular Hemoglobin 27.3 pg (28.0-33.3); Mean Corpuscular Volume 85.4 fL (83.0-100.0); Mean Platelet Volume 10.4 fL (9.4-12.4); Neutrophils # 7.6 K/mcL (1.6-8.9); Platelet Count 298 K/mcL (140-400); Red Blood Count 5.01 M/mcL (3.82-4.97); Red Cell Distribution Width 14.2 % (11.5-14.5); Segmented Neutrophils % 75.2 %; White Blood Count 10.1 K/mcL (4.3-11.1)
[2020-09-16 16:19] LABS: INR 1.2; Prothrombin Time 13.4 Seconds (9.4-12.1)
[2020-09-16 16:21] LABS: Activated Partial Thrombo Time 24.5 Seconds (26.0-36.0)
[2020-09-16 16:31] LABS: Alanine Aminotransferase 21 Units/L (7-52); Albumin 3.4 g/dL (3.5-5.7); Albumin/Globulin Ratio 1.2 (1.1-2.2); Alkaline Phosphatase 66 Units/L (34-104); Aspartate Amino Transferase 19 Units/L (13-39); BUN/Creatinine Ratio 23 (6-26); Bilirubin,Direct 0.1 mg/dL (0.0-0.2); Bilirubin,Indirect 0.5 mg/dL (0.0-1.0); Bilirubin,Total 0.6 mg/dL (0.3-1.0); Blood Urea Nitrogen 28 mg/dL (8-23); C-Reactive Protein 140 mg/L (Less than 10); Calcium 10.3 mg/dL (8.6-10.3); Carbon Dioxide 23 mEq/L (23-29); Chloride 100 mEq/L (98-107); Globulin 2.9 g/dL (2.4-3.5); Glucose 189 mg/dL (70-105); Lactate Dehydrogenase 195 Units/L (140-271); Magnesium 1.6 mg/dL (1.6-2.6); Osmolality,Calculated 289 (280-300); Phosphorous 3.4 mg/dL (2.7-4.5); Potassium 4.3 mEq/L (3.5-5.1); Sodium 134 mEq/L (136-145); Total Protein 6.3 g/dL (6.4-8.9); eGFR For African Americans 50 (> 60); eGFR For Non-African Americans 41 (> 60)
[2020-09-16 16:32] LABS: Troponin I < 0.03 ng/mL (< 0.04)
[2020-09-16 16:50] LABS: Ferritin 216 ng/mL (10-120)
[2020-09-16] MEDS ORDERED: *HR* Dextrose 50 % in Water (Vial) 50 ML VIAL IVP PRN (16:58)
[2020-09-16] MEDS ORDERED: Acetaminophen 325 MG TABLET PO PRN (16:58)
[2020-09-16] MEDS ORDERED: Naloxone 0.4 MG/ML INJ IVP PRN (16:58)
[2020-09-16] MEDS ORDERED: Ondansetron 4 MG/2 ML VIAL IVP PRN (16:58)
[2020-09-16] MEDS ORDERED: D5% in Water 1,000 ML IVC PRN (16:58)
[2020-09-16] MEDS ORDERED: Dextrose Gel 15 GM/37.5 ML TUBE PO PRN ×2 (16:58)
[2020-09-16] MEDS ORDERED: Azithromycin 500 MG in 0.9 % Sodium Chloride 250 ML IVPB SCH (18:00)
[2020-09-16] MEDS: cefTRIAXone 2,000 MG in Water for inj. (sterile) 20 ML IVP SCH (20:06)
[2020-09-16] MEDS: *HR* Heparin 5,000 UNIT/ML VIAL SQ SCH (20:10)
[2020-09-16] MEDS: Insulin LISPRO 300 UNITS/3 ML VIAL SQ SCH (20:12)
[2020-09-16] MEDS: Dexamethasone 4 MG/ML VIAL IVP SCH (20:14)
[2020-09-17 03:52] LABS: Basophils # 0.1 K/mcL (0.0-0.2); Basophils % 0.9 %; Eosinophils % 0.2 %; Hematocrit 39.6 % (35.3-44.9); Hemoglobin 12.9 g/dL (11.5-15.4); Immature Granulocytes % 4.6 % (0-4); Lymphocytes # 0.8 K/mcL (0.6-4.6); Lymphocytes % 12.8 %; Mean Corpuscular HGB Conc 32.6 g/dL (31.6-35.5); Mean Corpuscular Hemoglobin 28.1 pg (28.0-33.3); Mean Corpuscular Volume 86.3 fL (83.0-100.0); Mean Platelet Volume 10.5 fL (9.4-12.4); Monocytes # 0.4 K/mcL (0.0-1.3); Monocytes % 5.7 %; Neutrophils # 4.9 K/mcL (1.6-8.9); Platelet Count 275 K/mcL (140-400); Red Blood Count 4.59 M/mcL (3.82-4.97); Red Cell Distribution Width 14.2 % (11.5-14.5); Segmented Neutrophils % 75.8 %; White Blood Count 6.5 K/mcL (4.3-11.1)
[2020-09-17] MEDS: *HR* Heparin 5,000 UNIT/ML VIAL SQ SCH ×2 (05:06→18:09)
[2020-09-17 06:31] LABS: Fibrinogen 672 mg/dL (169-393)
[2020-09-17 06:41] LABS: Alanine Aminotransferase 16 Units/L (7-52); Albumin 3.2 g/dL (3.5-5.7); Alkaline Phosphatase 63 Units/L (34-104); Aspartate Amino Transferase 14 Units/L (13-39); BUN/Creatinine Ratio 32 (6-26); Bilirubin,Total 0.4 mg/dL (0.3-1.0); Blood Urea Nitrogen 31 mg/dL (8-23); Calcium 10.1 mg/dL (8.6-10.3); Carbon Dioxide 25 mEq/L (23-29); Chloride 101 mEq/L (98-107); Globulin 3.1 g/dL (2.4-3.5); Glucose 195 mg/dL (70-105); Magnesium 1.8 mg/dL (1.6-2.6); Osmolality,Calculated 292 (280-300); Phosphorous 4.2 mg/dL (2.7-4.5); Potassium 4.4 mEq/L (3.5-5.1); Sodium 135 mEq/L (136-145); Total Protein 6.3 g/dL (6.4-8.9); eGFR For African Americans > 60 (> 60); eGFR For Non-African Americans 54 (> 60)
[2020-09-17 06:55] LABS: D-Dimer 3336 ng/mLFEU (0-500)
[2020-09-17] MEDS: Insulin LISPRO 300 UNITS/3 ML VIAL SQ SCH ×3 (07:41→17:22)
[2020-09-17] MEDS: Dexamethasone 4 MG/ML VIAL IVP SCH (07:42)
[2020-09-17] MEDS ORDERED: Azithromycin 250 MG TABLET PO SCH ×2 (18:00→21:00)
[2020-09-17] MEDS: cefTRIAXone 2,000 MG in Water for inj. (sterile) 20 ML IVP SCH (18:09)
[2020-09-17] MEDS ORDERED: Insulin DETEMIR 100 UNIT/ML X5UNITS SQ SCH (21:00)
[2020-09-18 05:04] LABS: Basophils # 0.1 K/mcL (0.0-0.2); Basophils % 0.6 %; Eosinophils # 0.1 K/mcL (0.0-0.6); Eosinophils % 0.7 %; Hemoglobin 12.8 g/dL (11.5-15.4); Lymphocytes # 1.5 K/mcL (0.6-4.6); Lymphocytes % 15.2 %; Mean Corpuscular Hemoglobin 27.8 pg (28.0-33.3); Mean Corpuscular Volume 86.8 fL (83.0-100.0); Mean Platelet Volume 10.6 fL (9.4-12.4); Monocytes # 0.9 K/mcL (0.0-1.3); Neutrophils # 6.9 K/mcL (1.6-8.9); Platelet Count 293 K/mcL (140-400); Red Blood Count 4.61 M/mcL (3.82-4.97); Segmented Neutrophils % 71.5 %; White Blood Count 9.7 K/mcL (4.3-11.1)
[2020-09-18 05:17] LABS: BUN/Creatinine Ratio 44 (6-26); Blood Urea Nitrogen 37 mg/dL (8-23); Calcium 10.5 mg/dL (8.6-10.3); Carbon Dioxide 25 mEq/L (23-29); Chloride 105 mEq/L (98-107); Glucose 166 mg/dL (70-105); Osmolality,Calculated 296 (280-300); Potassium 4.3 mEq/L (3.5-5.1); Sodium 137 mEq/L (136-145); eGFR For African Americans > 60 (> 60); eGFR For Non-African Americans > 60 (> 60)
[2020-09-18] MEDS ORDERED: *HR* Enoxaparin 40 MG/0.4 ML SYRINGE SQ SCH (06:00)
[2020-09-18] MEDS: Dexamethasone 4 MG/ML VIAL IVP SCH (08:09)
[2020-09-18] MEDS: Insulin LISPRO 300 UNITS/3 ML VIAL SQ SCH ×2 (08:10→12:00)
[2020-09-18 08:49] VITALS: BP 150/61
== END 2020-09-18 18:00 | disposition home health service (06) ==
LOC: 2NENU 15:13 → EMEROOARM 15:13 → SUATTDRO 17:49 → 2NENU 18:28
PROVIDERS: ADMIT Internal Medicine; ATTEND Internal Medicine